=== PATIENT | female | born 1995 | race Caucasian/White ===

== ENCOUNTER → 2016-11-06 | Day surgery (SDC) | payer OTHER ==
[~2016-11-06] MED LIST: APREPITANT 40 MG CAP ONE; BUPIVACAINE HCL PF 0.25% 30 ML VIAL ONE; KETOROLAC TROMETHAMINE 30 MG/ML (IVP) VIAL IV PUSH ONE; LACTATED RINGER'S 1000 ML INJ 1,000 ML ONE; MIDAZOLAM HCL 2 MG/2 ML VIAL ONE; MORPHINE SULFATE 4 MG/ML INJ ONE; ONDANSETRON HCL 4 MG/2 ML VIAL ONE; PROPOFOL 200 MG/20 ML AMP IV ONE; ceFAZolin INJ 1,000 MG VIAL ONE
--- NOTE | 2016-11-07 16:20 | PD.OP ---
cc: Ander Acevedo Jr., MD Operative Report Date of Surgery: Nov 06, 2006 Preoperative Diagnosis: #1 -Right hand painful hardware #2- right hand contracture Postoperative Diagnosis: Same Procedure: #1 -Right-hand removal of hardware #2- right hand extensor tenolysis and manipulation under anesthesia Anesthesia: Gen. Surgeon: Ander Acevedo Wool Fleece Sorter(s): Staff Resident Surgeon: None Operation and Findings: Patient is status post RIGHT third metacarpal open reduction internal fixation with subsequent painful hardware and hand stiffness. Patient now presents for removal of hardware as well as manipulation under anesthesia for hand stiffness. Informed consent was obtained after detailed discussion of risk and benefits including bleeding, infection, injury to arteries, nerves, and blood vessels, weakness and numbness of hand, and tendon rupture. Informed consent was obtained. Patient received IV antibiotics prior to incision. Timeout procedure was performed. Operative extremity was prepped with alcohol followed by Hibiclens and draped usual sterile fashion. A dorsal incision over her previous scar was made. Dissection taken down to the plate while moving extensor tendon radially and taking care not to injure the dorsal veins. The plate was located and the screws and plate were removed without issues. Extensor tendon was carefully elevated off the metacarpal and scar tissue was removed proximally and distally. All the fingers were taken through a complete range of motion in flexion, extension and the making a fist. Final fluoroscopy revealed Complete removal of the hardware. The wound was thoroughly irrigated with saline. Subcutaneous test tissue was closed with 3-0 Vicryl and skin with 3-0 nylon. Sterile dressing was applied, Xeroform, 4 x 4, soft roll and sujata wrap. Patient was awakened and transferred to recovery room in stable condition. There were no complications. Ander Acevedo Jr., MD Nov 07, 2016 16:20
== END | disposition home or self-care (01) ==
LOC: ESDC 12:40
PROVIDERS: ATTEND Orthopaedic Surgery
DX: T84.84XA Pain due to internal orthopedic prosthetic devices, implants and grafts, initial encounter (principal); S62.312A Displaced fracture of base of third metacarpal bone, right hand, initial encounter for closed fracture; M24.541 Contracture, right hand
CPT/HCPCS: 01810; 01830; 20680; 26445; 73120; 76000; J0690; J1885; J2250; J2270; J2405; J3010; J7120; J8501